=== PATIENT | female | born 1990 | race Hispanic/Latino ===

== ENCOUNTER 2021-02-10 21:44 | Observation (INO) | payer SELFPAY ==
[2021-02-10 22:18] LABS: #Eosinphils 0.1 thou/uL (0.0-0.7); #Lymphocytes 1.5 thou/uL (1.20-3.40); #Monocytes 0.6 thou/uL (0.11-0.59); #Neutrophils 7.2 thou/uL (1.40-6.50); %Basophils 0.3 % (0.0-1.0); %Eosinophils 0.6 % (0.0-10.0); %Lymphocytes 16.1 % (21.0-51.0); %Monocytes 5.9 % (0.0-10.0); %Neutrophils 77.2 % (42.0-75.0); Hemoglobin 12.4 g/dL (12.0-16.0); Mean Corpuscular HGB CONC 31.9 g/dL (32.0-36.0); Mean Corpuscular Volume 87.7 fL (78.0-98.0); Mean Platelet Volume 7.1 fL (7.4-10.4); Platelet Count 312 thou/uL (130-400); RBC Distribution Width 11.6 % (11.5-14.5); Red Blood Cell (RBC) Count 4.45 mill/uL (4.20-5.40); White Blood Cell (WBC) Count 9.4 thou/uL (4.8-10.8)
[2021-02-10 22:39] LABS: ALT (SGPT) 208 U/L (8-55); AST (SGOT) 256 U/L (5-34); Albumin 4.3 g/dL (3.5-5.0); Alkaline Phosphatase 137 U/L (40-110); Anion Gap 13 mmol/L (10-20); BUN (Urea Nitrogen) 10 mg/dL (7.0-18.7); Bilirubin, Total 0.9 mg/dL (0.2-1.2); Calc. Creatinine Clearance 0 mL/min (70-130); Calcium 9.2 mg/dL (7.8-10.44); Carbon Dioxide 26 mmol/L (22-29); Chloride 103 mmol/L (98-107); Globulin 3.9 g/dL (2.4-3.5); Glucose 132 mg/dL (70-105); Lipase 27 U/L (8-78); Protein, Total 8.2 g/dL (6.0-8.3); Sodium 138 mmol/L (136-145)
[2021-02-11] MEDS ORDERED: Ketorolac Tromethamine 30 MG/ML VIAL ONE (00:16)
[2021-02-11 00:51] LABS: Pregnancy Test - Urine (BHCG) Negative (Negative); Pregu Control Background? CLEAR/WHITE (CLR/WHITE); Pregu Control Bar Appear? YES (CONTROL BAR); Specific Gravity 1.022 (1.002-1.036)
[2021-02-11 00:52] LABS: Bacteria/HPF None Seen HPF (None Seen); Bilirubin Negative (Negative); Blood, Urine 1+ (Negative); Clarity Turbid (Clear); Glucose, Urine (Dipstick) Normal (Negative); Ketone, Urine Negative (Negative); Leukocyte Negative Leu/uL (Negative); Nitrite Negative (Negative); Protein, Urine (Dipstick) Negative (Neg-Trace); Specific Gravity, Urine 1.022 (1.002-1.036); Squamous Epithelial 0-3 HPF (0-3); WBC/HPF 0-3 HPF (0-3)
[2021-02-11] MEDS ORDERED: Piperacillin/Tazobactam 3.375 GM VIAL ONE ×2 (02:11→02:18)
[2021-02-11 04:24] LABS: SARS-CoV-2 NAA Rapid Test Not Detected (NotDetected)
[2021-02-11] MEDS ORDERED: Ondansetron PF 4 MG/2 ML Vial IVP PRN ×2 (04:30→11:14)
[2021-02-11] MEDS ORDERED: Ondansetron ODT 4 MG TAB SL PRN (04:30)
[2021-02-11] MEDS: Sodium Chloride 0.9% 1,000 ML IV SCH ×2 (04:49→15:07)
[2021-02-11] MEDS: Morphine 4 MG/ML VIAL SLOW IVP PRN ×3 (04:49→09:38)
[2021-02-11 05:19] VITALS: BMI 45.1
[2021-02-11] MEDS ORDERED: Piperacillin/Tazobactam 3.375 GM in Sodium Chloride 0.9% 100 ML IVPB SCH ×2 (06:00→14:00)
[2021-02-11] MEDS ORDERED: Ondansetron ODT 8 MG TAB SL PRN (11:14)
[2021-02-11] MEDS ORDERED: Ondansetron ORAL SOLN. 4 MG/5 ML UDCUP PO PRN (11:14)
[2021-02-11] MEDS ORDERED: Ondansetron PF 4 MG/2 ML Vial IVP SCH (11:15)
[2021-02-11] MEDS ORDERED: Ketorolac Tromethamine 30 MG/ML VIAL IVP SCH (11:15)
[2021-02-11] MEDS ORDERED: Acetaminophen 500 MG TAB PO SCH (11:15)
[2021-02-11] MEDS ORDERED: Sodium Chloride 0.9% 1,000 ML IV SCH (11:30)
[2021-02-11] MEDS ORDERED: Scopolamine 1.5 mg/72 hour Patch TD SCH (12:00)
[2021-02-11] MEDS ORDERED: Bupivacaine PF 0.5% 30 ML VIAL ONE (15:45)
[2021-02-11] MEDS ORDERED: Lidocaine 1% w/Epinephrine 1:100K 20 ML VIAL ONE (15:45)
[2021-02-11] MEDS ORDERED: Midazolam HCl 2 mg/2 ml Vial ONE ×2 (16:08→17:13)
[2021-02-11] MEDS ORDERED: Fentanyl 100 MCG/2 ML VIAL ONE ×4 (16:13→17:54)
[2021-02-11] MEDS ORDERED: traMADol HCl 50 MG TAB PO PRN (16:33)
[2021-02-11] MEDS ORDERED: Ondansetron PF 4 MG/2 ML Vial ONE (16:33)
[2021-02-11] MEDS ORDERED: PROPOFOL 200 MG/20 ML VIAL ONE (16:33)
[2021-02-11] MEDS ORDERED: Ibuprofen 600 MG TAB PO PRN (16:33)
[2021-02-11] MEDS ORDERED: Dexamethasone 20 MG/5 ML VIAL ONE (16:33)
[2021-02-11] MEDS ORDERED: Rocuronium Bromide 10 MG/ML (10ML VIAL) ONE (16:33)
[2021-02-11] MEDS ORDERED: SUGAMMADEX SODIUM 200 MG/2 ML VIAL ONE (16:52)
[2021-02-11] MEDS ORDERED: Promethazine HCl 25 MG/ML VIAL IVPB PRN (17:09)
[2021-02-11] MEDS ORDERED: Promethazine HCl 25 MG/ML VIAL IM PRN (17:09)
[2021-02-11] MEDS ORDERED: Ondansetron HCl/PF 4 MG/2 ML Vial IVP PRN (17:09)
[2021-02-11] MEDS ORDERED: Ketorolac Tromethamine 30 MG/ML VIAL IVP PRN (18:00)
[2021-02-11] MEDS ORDERED: Acetaminophen 500 MG TAB PO PRN (18:00)
[2021-02-11 20:02] VITALS: BP 130/72; TEMP 97.2
== END 2021-02-11 19:00 | disposition home or self-care (01) ==
LOC: ERS 21:44 → ONC 02-11 02:40
PROVIDERS: ADMIT Specialist; ATTEND Specialist
PROC: 0FT44ZZ Resection of Gallbladder, Percutaneous Endoscopic Approach (ICD-10-PCS; principal; 2021-02-11)
DX: K80.10 Calculus of gallbladder with chronic cholecystitis without obstruction (principal); K83.8 Other specified diseases of biliary tract; F17.210 Nicotine dependence, cigarettes, uncomplicated; E66.01 Morbid (severe) obesity due to excess calories; Z68.42 Body mass index [BMI] 45.0-49.9, adult; Z20.822 Contact with and (suspected) exposure to COVID-19
CPT/HCPCS: 36415; 76705; 80053; 81003; 81015; 81025; 83690; 85025; 88304; 96365; 96372; 96376; G0378; J1100; J1885; J2250; J2270; J2405; J2543; J2704; J3010; J3490; S0020; U0002; U0005